=== PATIENT | female | born 2000 | race Hispanic/Latino ===

== ENCOUNTER 2022-04-30 21:50 | Emergency (ER) | payer MEDICAID, OTHER ==
[2022-04-30] MEDS ORDERED: diphenhydrAMINE 25 MG CAP ONE (22:34)
== END 2022-04-30 22:40 | disposition home or self-care (01) ==
LOC: CSHERS 21:50
DX: R21 Rash and other nonspecific skin eruption (principal)
CPT/HCPCS: 99282

== ENCOUNTER 2024-08-02 18:00 | Inpatient (IN) | payer OTHER ==
[2024-08-12] MEDS ORDERED: Ondansetron PF 4 MG/2 ML Vial IVP PRN (16:34)
[2024-08-12] MEDS ORDERED: Promethazine HCl 25 MG/ML VIAL IM PRN (16:34)
[2024-08-12] MEDS ORDERED: Tranexamic Acid 1,000 MG/10 ML VIAL IVP PRN (16:34)
[2024-08-12] MEDS ORDERED: Misoprostol 200 MCG TAB PR PRN (16:34)
[2024-08-12] MEDS ORDERED: Ibuprofen 800 MG TAB PO PRN (16:34)
[2024-08-12] MEDS ORDERED: Lidocaine 1% (PF) 30 ML VIAL SC PRN (16:34)
[2024-08-12] MEDS ORDERED: Methylergonovine 0.2 MG/ML VIAL IM PRN (16:34)
[2024-08-12] MEDS ORDERED: Carboprost 250 MCG/ML AMP IM PRN (16:34)
[2024-08-12] MEDS ORDERED: Diphenoxylate HCl/Atropine Tablet PO PRN ×2 (16:34)
[2024-08-12] MEDS ORDERED: hydrALAZINE 20 MG/ML VIAL SLOW IVP PRN (16:34)
[2024-08-12] MEDS ORDERED: Penicillin G Potassium 5 MILL.UNITS in Sodium Chloride 0.9% 100 ML IVPB SCH (16:45)
[2024-08-12] MEDS ORDERED: Oxytocin 30 units/NS 500 ML 500 ML IV SCH ×2 (16:45)
[2024-08-12 17:41] VITALS: BMI 26.9
[2024-08-12 17:44] LABS: Hematocrit 34.2 % (34.9-44.5); Hemoglobin 11.9 g/dL (12.0-15.5); Mean Corpuscular HGB CONC 34.8 g/dL (32.0-36.0); Mean Corpuscular Hemoglobin 31.3 pg (27.0-33.0); Platelet Count 241 10x3/uL (150-450); RBC Distribution Width 19.6 % (11.5-14.5); White Blood Cell (WBC) Count 11.2 10x3/uL (3.5-10.5)
[2024-08-12] MEDS: Misoprostol 100 MCG TAB VAG SCH (17:54)
[2024-08-12 18:13] LABS: HBsAg Index 0.17 S/CO (0-0.99); Hep B Surf Ag - L&D Non-Reactive S/CO (NonReactive)
[2024-08-12 18:14] LABS: Syphilis Antibody Nonreactive (Nonreactive); Syphilis Antibody Index 0.04 S/CO (<1.00 Non-Reactive)
[2024-08-13] MEDS: fentaNYL 50 mcg/mL 1 mL Vial SLOW IVP PRN (10:27)
[2024-08-13] MEDS: Penicillin G Potassium 5 MILL.UNITS in Sodium Chloride 0.9% 100 ML IVPB SCH (10:45)
[2024-08-13] MEDS: Oxytocin 30 units/NS 500 ML 500 ML IV SCH (11:08)
[2024-08-13] MEDS ORDERED: Naloxone HCl 0.4 mg/ml Vial IVP PRN ×2 (13:45)
[2024-08-13] MEDS ORDERED: Promethazine HCl 25 MG/ML VIAL IM PRN (13:45)
[2024-08-13] MEDS ORDERED: diphenhydrAMINE 50 MG/ML VIAL IVP PRN (13:45)
[2024-08-13] MEDS ORDERED: ePHEDrine Sulfate 50 MG/10 ML VIAL SLOW IVP PRN (13:45)
[2024-08-13] MEDS ORDERED: Lactated Ringer's 500 ML IV PRN (13:45)
[2024-08-13] MEDS ORDERED: Moisturizing Cream (Eucerin) 113 GM JAR TOP PRN (13:45)
[2024-08-13] MEDS ORDERED: Ondansetron PF 4 MG/2 ML Vial IVP PRN (13:45)
[2024-08-13] MEDS: fentaNYL 2 mcg/Ropivacaine 0.2% Epidural 100 ML CADD EPIDURAL SCH (14:02)
[2024-08-13] MEDS: Penicillin G 2.5 MILL.units 2.5 MILL.UNITS in Premix 1 BAG IVPB SCH ×2 (14:14→19:31)
[2024-08-13] MEDS: Lactated Ringer's 1,000 ML IV SCH (14:39)
[2024-08-13] MEDS: fentaNYL/Ropivacaine Epidural 100 ML ONE (19:30)
[2024-08-13] MEDS: Lidocaine 1% (PF) 30 ML VIAL ONE (19:31)
[2024-08-13] MEDS: Acetaminophen 500 MG TAB PO PRN (21:56)
[2024-08-13] MEDS: Ampicillin 2 GM in Sodium Chloride 0.9% 100 ML IVPB SCH (22:28)
[2024-08-13] MEDS: Gentamicin 300 MG, Admixture Fee 1 EACH in Sodium Chloride 0.9% 100 ML IVPB SCH (23:01)
[2024-08-13] MEDS ORDERED: Bicitra 30 ML UDCUP PO PRN (23:33)
[2024-08-13] MEDS ORDERED: Famotidine/PF 20 mg/2ml Vial SLOW IVP PRN (23:33)
[2024-08-13] MEDS ORDERED: Clindamycin/D5W 900 MG in Premix 1 BAG IVPB SCH (23:45)
[2024-08-13] MEDS ORDERED: Azithromycin 500 MG in Sodium Chloride 0.9% 250 ML 250 ML IVPB SCH (23:45)
[2024-08-14 01:16] LABS: Analyzer IN Cardio CS NICU; Critical Notified By: CP.PH; Critical Notified Whom: NUR.HNA; RapidComm Collect By CBN
[2024-08-14] MEDS ORDERED: Ondansetron PF 4 MG/2 ML Vial IVP PRN ×3 (01:16→03:52)
[2024-08-14] MEDS ORDERED: Naloxone HCl 0.4 mg/ml Vial IVP PRN ×2 (01:16)
[2024-08-14] MEDS ORDERED: Meperidine HCl/PF 25 MG (1 mL) VIAL SLOW IVP PRN (01:16)
[2024-08-14] MEDS ORDERED: Naloxone HCl 0.4 mg/ml Vial IV PRN (01:16)
[2024-08-14] MEDS ORDERED: Moisturizing Cream (Eucerin) 113 GM JAR TOP PRN (01:16)
[2024-08-14] MEDS ORDERED: diphenhydrAMINE 50 MG/ML VIAL IVP PRN (01:16)
[2024-08-14] MEDS ORDERED: Promethazine HCl 25 MG/ML VIAL IM PRN ×2 (01:16→03:52)
[2024-08-14 01:18] LABS: Analyzer IN Cardio CS NICU; Critical Notified By: CP.PH; Critical Notified Whom: NUR.HNA; RapidComm Collect By CBN; pH (Cord, venous) 7.334 (7.250-7.350)
[2024-08-14] MEDS ORDERED: Communication Order-Pharmacy FS SCH (01:30)
[2024-08-14] MEDS: Ketorolac Tromethamine 30 MG (1 mL) VIAL IVP SCH (01:45)
[2024-08-14] MEDS: CEFAZOLIN 2 GM VIAL ONE (01:46)
[2024-08-14] MEDS: Morphine PF 10 MG/10 ML VIAL ONE (01:47)
[2024-08-14] MEDS: Oxytocin 10 UNITS/ML VIAL ONE (01:47)
[2024-08-14] MEDS: Azithromycin 500 MG VIAL ONE (01:47)
[2024-08-14] MEDS: Ondansetron PF 4 MG/2 ML Vial ONE (01:47)
[2024-08-14] MEDS: Dexamethasone 10 MG/ML VIAL ONE (01:47)
[2024-08-14] MEDS: fentaNYL 50 mcg/mL 1 mL Vial ONE ×2 (01:48→01:49)
[2024-08-14] MEDS: Midazolam HCl 2 mg/2 ml Vial ONE (01:48)
[2024-08-14] MEDS: PHENYLEPHRINE-NS 100 MCG/ML 10 ML SYRINGE ONE (01:48)
[2024-08-14] MEDS: Methylergonovine 0.2 MG/ML VIAL ONE (01:48)
[2024-08-14] MEDS: Tranexamic Acid 1,000 MG/10 ML VIAL ONE (01:48)
[2024-08-14] MEDS: Clindamycin/D5W 900 MG in Premix 1 BAG IVPB SCH ×2 (01:51→02:20)
[2024-08-14] MEDS: fentaNYL 50 mcg/mL 1 mL Vial SLOW IVP PRN (02:15)
[2024-08-14] MEDS ORDERED: Simethicone Chewable 80 MG TAB PO PRN (03:52)
[2024-08-14] MEDS ORDERED: Misoprostol 200 MCG TAB PR PRN (03:52)
[2024-08-14] MEDS ORDERED: Lanolin Ointment 7 GM TUBE TOP PRN (03:52)
[2024-08-14] MEDS ORDERED: Oxytocin 30 units/NS 500 ML 500 ML IV SCH (03:52)
[2024-08-14] MEDS ORDERED: diphenhydrAMINE 25 MG CAP PO PRN (03:52)
[2024-08-14] MEDS ORDERED: Boostrix 0.5 ML (Tdap) VIAL (>/=7 yrs of age) IM ONE (03:52)
[2024-08-14] MEDS ORDERED: hydrALAZINE 20 MG/ML VIAL SLOW IVP PRN (03:52)
[2024-08-14] MEDS ORDERED: Bisacodyl 10 MG SUPP PR PRN (03:52)
[2024-08-14] MEDS ORDERED: Lidocaine 2% MPF 10 ML AMP (For Epidural Use) ONE (08:00)
[2024-08-14] MEDS ORDERED: Bupivacaine/Epinephrine 0.25% 30 ML VIAL ONE (08:00)
[2024-08-14] MEDS: Docusate 100 MG CAP PO SCH (08:07)
[2024-08-14] MEDS: Prenatal Vitamin 1 TAB PO SCH (08:07)
[2024-08-14] MEDS: Ketorolac Tromethamine 30 MG (1 mL) VIAL IVP PRN (08:08)
[2024-08-14] MEDS ORDERED: HYDROcodone/Acetaminophen 5/325 mg Tablet PO PRN ×3 (08:45→20:45)
[2024-08-14] MEDS: Ferrous Sulfate 325 MG TAB PO SCH (09:00)
[2024-08-15 04:39] LABS: Hematocrit 28.9 % (34.9-44.5); Hemoglobin 9.2 g/dL (12.0-15.5); Mean Corpuscular HGB CONC 31.8 g/dL (32.0-36.0); Mean Corpuscular Hemoglobin 29.9 pg (27.0-33.0); Mean Corpuscular Volume 93.8 fL (81.6-98.3); Mean Platelet Volume 9.4 fL (7.4-10.4); Platelet Count 190 10x3/uL (150-450); RBC Distribution Width 20.2 % (11.5-14.5); Red Blood Cell (RBC) Count 3.08 10x6/uL (3.90-5.03); White Blood Cell (WBC) Count 14.5 10x3/uL (3.5-10.5)
[2024-08-15] MEDS: Ibuprofen 800 MG TAB PO SCH (06:30)
[2024-08-15] MEDS: Acetaminophen 325 MG TAB PO PRN (08:18)
[2024-08-15 15:56] VITALS: BP 107/57; TEMP 98.1
== END 2024-08-15 18:35 | disposition home or self-care (01) | DRG 786 ==
LOC: CSHLD 08-12 16:18 → CSHPP 08-14 03:35
PROVIDERS: ADMIT Family Medicine; ATTEND Family Medicine
PROC: 10D00Z1 Extraction of Products of Conception, Low, Open Approach (ICD-10-PCS; principal; 2024-08-14)
PROC: 4A033R1 Measurement of Arterial Saturation, Peripheral, Percutaneous Approach (ICD-10-PCS; 2024-08-14)
DX: O41.03X0 Oligohydramnios, third trimester, not applicable or unspecified (principal); O41.1230 Chorioamnionitis, third trimester, not applicable or unspecified; O36.5930 Maternal care for other known or suspected poor fetal growth, third trimester, not applicable or unspecified; Z3A.39 39 weeks gestation of pregnancy; Z37.0 Single live birth; O99.02 Anemia complicating childbirth; Z79.82 Long term (current) use of aspirin; Z79.899 Other long term (current) drug therapy; O99.824 Streptococcus B carrier state complicating childbirth; O76 Abnormality in fetal heart rate and rhythm complicating labor and delivery; D64.9 Anemia, unspecified; D72.829 Elevated white blood cell count, unspecified
CPT/HCPCS: 36415; 51702; 59200; 82805; 85027; 86780; 86850; 86900; 86901; 87340; 88307; J0290; J1100; J1580; J1885; J2250; J2274; J2405; J2540; J2590; J3010; J3490; J7120

== ENCOUNTER 2025-07-19 17:22 | Emergency (ER) | payer OTHER | END 2025-07-19 19:18 | disposition home or self-care (01) | LOC: CSHERS 17:22 | DX: Z04.1 Encounter for examination and observation following transport accident (principal); V49.40XA Driver injured in collision with unspecified motor vehicles in traffic accident, initial encounter | CPT/HCPCS: 99282 ==